=== PATIENT | female | born 1980 | race Caucasian/White ===

== ENCOUNTER 2021-04-07 20:44 | Inpatient (IN) | payer SELFPAY ==
[2021-04-07 22:29] VITALS: BP 119/78; PULSE 83; RESP 18; TEMP 36.4; O2SAT 98
[2021-04-07 22:31] VITALS: BMI 33.9
--- NOTE | 2021-04-08 05:13 | PC.ADMIT ---
6055 [address] Cooley Admission Note: Patient is a 40 year old female that presented to the ED of [facility] for evaluation of suicidal ideations. Patient has a history of depression which she states is worsening. She states, ?I no longer want to live. There is no longer a reason to live.? She has many stressors including the passing of her former years ago and losing custody of multiple children. During her assessment her nose ring was discussed. She asked repeatedly to let her leave it in as it is difficult to get out and expensive to re-hall. She said when she went to senior care they just cut it in half and yanked it out from both sides. She stated that really hurt. Patient showed positive for a UTI and received 3 doses of Keflex 500 mg. Patient tested + for meth and THC which she admitted to. The patient,Cinthia Peña,40 y/o, was given written information regarding hospital policies, unit procedures and contact persons. Vital Signs - 8 hr 04/07/21 22:29 Temperature 97.6 F Pulse Rate 83 Respiratory Rate 18 Blood Pressure 119/78 Pulse Oximetry 98
[2021-04-08 06:00] VITALS: BP 125/79; PULSE 78; RESP 18; TEMP 37.1; O2SAT 97
--- NOTE | 2021-04-08 08:12 | P.NPUHP_ITS ---
Providers/Chief Complaint Admitting Physician: Wan Cuevas MD Chief Complaint: MHE HPI NPU History of Present Illness Cinthia Peña is a 40 year old female was admitted as an outside referral from the emergency department at [facility] with the following report: this is a 40-year-old female who presents to the department for evaluation of suicidal ideations.? Patient reports a history of depression that has been worsening.? She states that she no longer wants to live and feels like there is no longer in the reason to live.? She denies any suicide attempts.? She denies any specific plan.? She does admit to amphetamine abuse and cannabinoid use.? She reports a history of previous opioid overdose but denies any current opioid usage.? She denies any IV drug abuse.? She states that she is feeling a prolonged sadness regarding previous stressful life events including passing of her former several years ago from drug overdose as well as losing custody of multiple children.? She states that I do not want to live anymore there is does not seem to be a point.? I do not have a plan to I just do not want him to be here anymore.? She arrives to the ED requesting assistance and hopeful for voluntary admission to psychiatric facility for help with her worsening sadness and current suicidal ideation.? Urine drug screen was positive for amphetamines and cannabinoids He was admitted to the neuropsychiatry unit for definitive treatment of these issues. She refuses to talk today. She says that she does not feel well. She cannot run come through her hair because we do not have conditioner. She says that she took some medications back in 2013 but does not remember all of them. She thinks that she was on Xanax and Wellbutrin among other things. She was hospitalized at that time but would not talk about why she was in the hospital. She has not been taking any medications recently. She says that she is homeless. She refused further discussion. She did talk with the nurse last night with the following report: Admission Note:?Patient is a 40 year old female that presented to the ED of [facility] for evaluation of suicidal ideations. Patient has a history of depression which she states is worsening.? She states, ?I no longer want to live.? There is no longer a reason to live.?? She has many stressors including the passing of her former years ago and losing custody of multiple children.? During her assessment her nose ring was discussed.? She asked repeatedly to let her leave it in as it is difficult to get out and expensive to re-hall.? She said when she went to penit[facility]iary they just cut it in half and yanked it out from both sides.? She stated that really hurt. Patient showed positive for a UTI and received 3 doses of Keflex 500 mg. Patient tested + for meth and THC which she admitted to. Meds NPU Home Medications Medication Instructions Recorded Confirmed Last Taken Type No Known Home Medications 04/08/21 04/08/21 Unknown History Mental Status Exam MSE Comments: This is a 40-year old female who appears approximately her stated age and is in no acute distress. She is in bed but woke up easily. She did not cooperate with the evaluation. She says that she does not feel well. psychomotor activity mildly decreased. About average for someone in bed. Speech is at a regular rate and rhythm, normal volume, good articulation, not pressured. Alert, would not answer questions about orientation Attention and concentration is probably average. Memory is intact Mood is depressed. Affect is mildly dysphoric. Thought process is logical and goal-directed. Thought content: Denies auditory and visual hallucinations. No delusions or paranoia are noted. No current suicidal ideation, and no homicidal ideation. Fund of knowledge is probably average. Insight and judgment appear to be poor. Impulse control is poor. Vitals/I&O/Wt Last Vital Signs Temp 98.8 F 04/08/21 06:00 Pulse 78 04/08/21 06:00 Resp 18 04/08/21 06:00 BP 125/79 04/08/21 06:00 Pulse Ox 97 04/08/21 06:00 Weight last 48 hrs Weight 95.254 kg A&P Assessment and plan (1) Depression: Status: Acute (2) Cluster B personality disorder in adult: Status: Acute (3) Suicidal ideation: Status: Acute (4) Homeless: Status: Acute (5) Methamphetamine abuse: Status: Acute (6) Cannabis abuse: Status: Acute Plan This is a 40-year-old female who is difficult to assess because she refuses to tell. She is evidently homeless and suicidal and abuses drugs. Plan: 1. Will observe on the medication for now and attempt to gather more information as she allows. 2. Continue every 15 minute checks for safety. 3. Encourage individual, group and milieu therapies. 4. Encourage sober living treatment after discharge at the highest level of care to which she is willing to commit. 5. We will monitor for safety for herself in the community prior to discharge. Involuntary Hold Information 96 Hour Hold: 96 Hour Involuntary Admission: No Attestations NPU Medical Necessity Statement*: Inpatient hospitalization is medically necessary and the clinically appropriate intervention at this time. We will initiate medications and make changes as indicated. She will be in the hospital for over 2 midnights. Likely length of stay 4-6 days Coding Level of Care Code Acute Meat Inspector for [facility] Fwd Diagnoses Depression F32.A Cluster B personality disorder in adult F60.9 Suicidal ideation R45.851 Homeless Z59.00 Methamphetamine abuse F15.10 Cannabis abuse F12.10
--- NOTE | 2021-04-08 08:17 | PC.OT ---
DURING OT EVALUATION PATIENT GAVE 1980
[2021-04-08 13:25] VITALS: BP 111/70; PULSE 65; RESP 17; TEMP 36.8; O2SAT 98
[2021-04-08] MEDS: OLANZapine 5 mg ODT PO (20:23)
--- NOTE | 2021-04-08 20:25 | PC.NURSE ---
Patient had a phone call that lead to agitation. Once back to her room nursing staff checked on her. She stated she did not want to be alive any more. She had a job and it is all gone now. There is no point to be here. Staff spoke with her and she wanted something to help her calm down. Zyprexa was given at 2022.
[2021-04-08 20:39] VITALS: BP 128/73; PULSE 95; RESP 18; TEMP 36.7; O2SAT 97
[2021-04-09 06:00] VITALS: BP 118/68; PULSE 86; RESP 20; TEMP 36.7; O2SAT 99
--- NOTE | 2021-04-09 11:25 | P.NPUPN_ITS ---
Subjective NPU Subjective: Interval history: See the social workers. She is in bed all the time. She says that her head is stuffy and she does not feel good. She says she does not like to take medication. I told her that she seemed to be okay with methamphetamine and marijuana. She said that she does not like methamphetamine but needed to stay awake so she did not get raped. She said I thought you guys were looking for a place for me to go. I told her that I did not know that she had talked with the social workers. They said that she refused to talk with them. I told her that we could not keep her here if she was escorted to lay in bed and not talk with us. She said that we could discharge her. I asked where she would go she said it does not matter and would not discuss it further. Mental Status Exam MSE Comments: This is a 40-year old female who appears approximately her stated age and is in no acute distress. She is in bed but woke up easily. She did not cooperate with the evaluation. She says that she does not feel well. psychomotor activity mildly decreased. About average for someone in bed. Speech is at a regular rate and rhythm, normal volume, good articulation, not pressured. Alert, would not answer questions about orientation Attention and concentration is probably average. Memory is intact Mood is depressed. Affect is irritable and dysphoric Thought process is logical and goal-directed. Thought content: Denies auditory and visual hallucinations. No delusions or paranoia are noted. No current suicidal ideation, and no homicidal ideation. Fund of knowledge is probably average. Insight and judgment appear to be poor. Impulse control is poor. Cognition: Patient Appearance: Appropriate and No Eye Contact Ability to Follow Directions: Excellent Patient Orientation (long list): Person, Place, Time, Name, Age and Birthday Comprehension Ability: No Impairment Hallucination Type: None Delusion Description: Not Present Thought Process: Blocking Behavior: Speech Pattern: Appropriate and Clear Vitals/I&O/Wt Last Vital Signs Temp 98.1 F 04/09/21 06:00 Pulse 86 04/09/21 06:00 Resp 20 H 04/09/21 06:00 BP 118/68 04/09/21 06:00 Pulse Ox 99 04/09/21 06:00 Weight last 48 hrs Weight 95.254 kg A&P Assessment and plan (1) Depression: Status: Acute (2) Cluster B personality disorder in adult: Status: Acute (3) Suicidal ideation: Status: Acute (4) Homeless: Status: Acute (5) Methamphetamine abuse: Status: Acute (6) Cannabis abuse: Status: Acute Plan This is a 40-year-old female who is difficult to assess because she refuses to talk. She is evidently homeless and suicidal and abuses drugs. Plan: 1. Will observe on the medication for now and attempt to gather more information as she allows. 2. Continue every 15 minute checks for safety. 3. Encourage individual, group and milieu therapies. 4. Encourage sober living treatment after discharge at the highest level of care to which she is willing to commit. 5. We will monitor for safety for herself in the community prior to discharge. Involuntary Hold Information 96 Hour Hold: 96 Hour Involuntary Admission: No Attestations NPU Medical Necessity Statement*: inpatient hospitalization is medically necessary and the clinically appropriate intervention at this time. We will initiate medications and make changes as indicated. Coding Level of Care Code Acute Radioactive Waste Disposal Dispatcher for [facility] Diagnoses Depression F32.A Cluster B personality disorder in adult F60.9 Suicidal ideation R45.851 Homeless Z59.00 Methamphetamine abuse F15.10 Cannabis abuse F12.10
[2021-04-09 14:00] VITALS: BP 112/52; PULSE 68; RESP 16; TEMP 36.3; O2SAT 99
[2021-04-09 21:46] VITALS: BP 117/65; PULSE 63; RESP 18; TEMP 36.3; O2SAT 97
[2021-04-10] MEDS: acetaminophen 325 mg Tablet 650 MG PO (02:36)
[2021-04-10 06:00] VITALS: BP 106/66; PULSE 62; RESP 16; TEMP 36.2; O2SAT 96
--- NOTE | 2021-04-10 12:15 | PC.NURSE ---
This RN attempted a physical assessment and focused suicidal assessment on client at approximately 1110 am. Patient was agitated as evidenced by patient yelling at self over not being able to open toothpaste. Patient stated I don't want to be here anymore, no one cares about me, I dont care about me. Client refused to answer focused suicidal questions. Client states I want to leave right now. I have no one. Don't you get it. No one cares about me.
[2021-04-10 14:00] VITALS: BP 128/76; PULSE 63; RESP 16; TEMP 36.7; O2SAT 100
--- NOTE | 2021-04-10 16:52 | W.PM.NPUPNS ---
Subjective NPU Subjective: Interval history: Patient presents today initially being quite reserved and not sharing with this typewriter mechanic which has been the difficulty with the treatment team thus far. She had been placed on a 96-hour hold earlier as she threatened to leave and great concerns existed with the outgoing physician and the treatment team about her safety. They had great concerns about how she had not been communicating with them as to how thin to changes in her safety profile to where would be safe for her to be discharged. Once it became clear that she was not leaving she began spouting things off about human trafficking and how possibly the last hospital contributed to her human trafficking and sex trafficking. She reported that only 2 people in the world to be trusted with certain information and that we had to release her before they figure out where she was. Mental Status Exam MSE Comments: This is an obese white female in hospital scrubs with limited grooming and eye contact. No abnormal movements except for psychomotor retardation juxtaposed with psychomotor agitation. Uncooperative with exam and moderate distress. At times extreme distress. Speech was decreased but then increased rate and volume. Mood described as fine affect labile. Thought process organized. Thought content: Patient was cagey about suicidal or homicidal ideation until it was clear she could leave and then she tried to use reports of safety as the reason she is to be discharged immediately, there were no delusions reported but concerns about paranoid and persecutory delusions exist, she did not endorse any auditory or visual hallucinations. Attention and concentration were limited and memory appeared unreliable but none were formally tested. She is alert and oriented x3. Insight and judgment appeared impaired impulse control was impaired. Vitals/I&O/Wt Last Vital Signs Temp 97.6 F 04/10/21 22:00 Pulse 67 04/10/21 22:00 Resp 17 04/10/21 22:00 BP 129/74 04/10/21 22:00 Pulse Ox 100 04/10/21 22:00 A&P Assessment and plan (1) Suicidal ideation: Status: Acute (2) Homeless: Status: Acute (3) Cluster B personality disorder in adult: Status: Acute (4) Depression: Status: Acute (5) Cannabis abuse: Status: Acute (6) Methamphetamine abuse: Status: Acute Plan This is a 40-year-old female who is difficult to assess because she refuses to talk.? She is evidently homeless and suicidal and abuses drugs. Plan: 1.? Will observe on the medication for now and attempt to gather more information as she allows. 2.? Continue every 15 minute checks for safety. 3.? Encourage individual, group and milieu therapies. 4.? Encourage sober living treatment after discharge at the highest level of care to which she is willing to commit. 5. Patient placed on a 96-hour hold as we assess for safety. Involuntary Hold Information 96 Hour Hold: 96 Hour Involuntary Admission: No Attestations NPU Medical Necessity Statement*: ?Inpatient hospitalization is medically necessary and the clinically appropriate intervention at this time.? We will initiate medications and make changes as indicated. Likely length of stay 2 to 4 days. Coding Level of Care Code Acute Correctional Classification Counselor for g Fwd Diagnoses Suicidal ideation R45.851 Homeless Z59.00 Cluster B personality disorder in adult F60.9 Depression F32.A Cannabis abuse F12.10 Methamphetamine abuse F15.10
[2021-04-10] MEDS: trazodone 50 mg Tablet PO (21:30)
[2021-04-10] MEDS: hyDROXYzine 25 mg Capsule 50 MG PO (21:30)
[2021-04-10 22:00] VITALS: BP 129/74; PULSE 67; RESP 17; TEMP 36.4; O2SAT 100
--- NOTE | 2021-04-11 01:22 | PC.NURSE ---
2129- vistaril for anxiety, and trazodone for sleep. 2229-It was effective.
[2021-04-11 06:00] VITALS: BP 129/59; PULSE 67; RESP 16; TEMP 36.4; O2SAT 99
[2021-04-11 14:00] VITALS: BP 120/81; PULSE 83; RESP 20; TEMP 36.4; O2SAT 100
--- NOTE | 2021-04-11 17:20 | P.NPUPN_ITS ---
Subjective NPU Subjective: Interval history: Patient presents today more talkative and more able to express some of her concerns and less animated and paranoid but still desirous of a immediate discharge without any clinical interventions. See talked a lot about her family not being trustworthy and selling her out in some situations particularly her sister. She did not deny that she may have some behaviors that are causing detrimental outcomes but continue to talk about sex trafficking and human trafficking. Mental Status Exam MSE Comments: This is an obese white female in hospital scrubs with limited grooming and eye contact.? No abnormal movements except for psychomotor retardation.? More cooperative with exam in mild distress.? Speech was more normal rate and volume. Mood described as fine affect less labile.? Thought process organized.? Thought content: Patient denied suicidal or homicidal ideation, there were no delusions reported but concerns about paranoid and persecutory delusions exist, she did not endorse any auditory or visual hallucinations.? Attention and concentration were improved and memory appeared unreliable but none were formally tested.? She is alert and oriented x3.? Insight and judgment appeared impaired impulse control was impaired. Vitals/I&O/Wt Last Vital Signs Temp 97.6 F 04/11/21 14:00 Pulse 83 04/11/21 14:00 Resp 20 H 04/11/21 14:00 BP 120/81 04/11/21 14:00 Pulse Ox 100 04/11/21 14:00 A&P Assessment and plan (1) Suicidal ideation: Status: Acute (2) Homeless: Status: Acute (3) Cluster B personality disorder in adult: Status: Acute (4) Depression: Status: Acute (5) Cannabis abuse: Status: Acute (6) Methamphetamine abuse: Status: Acute (7) Psychosis: Status: Acute Plan This is a 40-year-old female who is difficult to assess because she refuses to talk.? She is evidently homeless and suicidal and abuses drugs. Plan: 1.? Will observe on the medication for now and attempt to gather more information as she allows. 2.? Continue every 15 minute checks for safety. 3.? Encourage individual, group and milieu therapies. 4.? Encourage sober living treatment after discharge at the highest level of care to which she is willing to commit. 5.? Patient placed on a 96-hour hold as we assess for safety. Involuntary Hold Information 96 Hour Hold: 96 Hour Involuntary Admission: No Attestations NPU Medical Necessity Statement*: Inpatient hospitalization is medically necessary and the clinically appropriate intervention at this time.? We will initiate medications and make changes as indicated.? Likely length of stay 2 to 4 days. Coding Level of Care Code Acute Internal Recruiter for [facility] Fwd Diagnoses Suicidal ideation R45.851 Homeless Z59.00 Cluster B personality disorder in adult F60.9 Depression F32.A Cannabis abuse F12.10 Methamphetamine abuse F15.10 Psychosis F29
[2021-04-11] MEDS: nicotine 2 mg Gum BUCCAL (19:26)
[2021-04-11] MEDS: OLANZapine 5 mg ODT PO (19:26)
[2021-04-11] MEDS: trazodone 50 mg Tablet PO (20:14)
[2021-04-11 20:54] VITALS: BP 135/85; PULSE 73; RESP 18; TEMP 37; O2SAT 100
[2021-04-12 06:00] VITALS: BP 114/66; PULSE 69; RESP 16; O2SAT 98
[2021-04-12] MEDS: OLANZapine 5 mg ODT PO ×2 (07:20→19:20)
[2021-04-12 14:00] VITALS: BP 126/73; PULSE 67; RESP 16; TEMP 36.3; O2SAT 99
--- NOTE | 2021-04-12 15:32 | W.PM.NPUPNS ---
Subjective NPU Subjective: Interval history: Patient presents today continuing to express significant resistance to consideration of any medication. She did express difficulty sleeping and was open to increasing the trazodone and making it a steady dose. She expressed less angst surrounding her family but did spend much of the session talking about how no one is truthful and no one is trustworthy and spoke individually about certain people not caring in the world not caring at all. She acknowledged having addiction as an issue but downplayed the impact of addiction on her presentation. Medications: Medication Review Details: This is an obese white female in hospital scrubs with limited grooming and eye contact.? No abnormal movements except for psychomotor retardation.? More cooperative with exam in less distress.? Speech was more normal rate and volume. Mood described as fine affect less labile.? Thought process organized.? Thought content: Patient denied suicidal or homicidal ideation, there were no delusions reported but concerns about paranoid and persecutory delusions exist, she did not endorse any auditory or visual hallucinations.? Attention and concentration were improved and memory appeared unreliable but none were formally tested.? She is alert and oriented x3.? Insight and judgment appeared impaired impulse control was impaired. Vitals/I&O/Wt Last Vital Signs Temp 97.4 F L 04/12/21 14:00 Pulse 67 04/12/21 14:00 Resp 16 04/12/21 14:00 BP 126/73 04/12/21 14:00 Pulse Ox 99 04/12/21 14:00 A&P Assessment and plan (1) Psychosis: Status: Acute (2) Suicidal ideation: Status: Acute (3) Homeless: Status: Acute (4) Cluster B personality disorder in adult: Status: Acute (5) Depression: Status: Acute (6) Cannabis abuse: Status: Acute (7) Methamphetamine abuse: Status: Acute Plan This is a 40-year-old female who is difficult to assess because she refuses to talk.? She is evidently homeless and suicidal and abuses drugs. Plan: 1.? Will observe on the medication for now and attempt to gather more information as she allows. Her trazodone for as needed sleep option was increased to 100 mg p.o. nightly. 2.? Continue every 15 minute checks for safety. 3.? Encourage individual, group and milieu therapies. 4.? Encourage sober living treatment after discharge at the highest level of care to which she is willing to commit. 5.? Patient placed on a 96-hour hold as we assess for safety. Involuntary Hold Information 96 Hour Hold: 96 Hour Involuntary Admission: No Attestations NPU Medical Necessity Statement*: Inpatient hospitalization is medically necessary and the clinically appropriate intervention at this time.? We will initiate medications and make changes as indicated.? Likely length of stay 2 to 4 days. Coding Level of Care Code Acute Industrial Electrician Journeyman for [facility] Fwd Diagnoses Psychosis F29 Suicidal ideation R45.851 Homeless Z59.00 Cluster B personality disorder in adult F60.9 Depression F32.A Cannabis abuse F12.10 Methamphetamine abuse F15.10
[2021-04-12] MEDS: nicotine 2 mg Gum BUCCAL (19:20)
[2021-04-12 22:00] VITALS: BP 126/69; PULSE 82; RESP 17; TEMP 36.7; O2SAT 100
[2021-04-13 06:00] VITALS: BP 118/73; PULSE 79; RESP 20; TEMP 36.2; O2SAT 97
--- NOTE | 2021-04-13 11:39 | W.PM.NPUPNS ---
Subjective NPU Subjective: Interval history: Patient presents today less talkative than last couple of days. Endorsing frustration about being here. She continues to seem less paranoid than her initial presentation and has calmed down considerably according to staff and this credit underwriter's observation. We agreed that she would meet with the treatment team tomorrow and the social work team to get a real sense of how she is actually doing and what options exist for her outside the hospital. Mental Status Exam MSE Comments: This is an obese white female in hospital scrubs with limited grooming and eye contact.? No abnormal movements except for psychomotor retardation.? More cooperative with exam in mild distress.? Speech was more normal rate and volume. Mood described as fine affect subdued.? Thought process organized.? Thought content: Patient denied suicidal or homicidal ideation, there were no delusions reported but decreasing concerns about paranoid and persecutory delusions exist, she did not endorse any auditory or visual hallucinations.? Attention and concentration were improved and memory appeared unreliable but none were formally tested.? She is alert and oriented x3.? Insight and judgment appeared limited impulse control was limited. Vitals/I&O/Wt Last Vital Signs Temp 97.1 F L 04/13/21 06:00 Pulse 79 04/13/21 06:00 Resp 20 H 04/13/21 06:00 BP 118/73 04/13/21 06:00 Pulse Ox 97 04/13/21 06:00 Weight last 48 hrs Weight 109.769 kg A&P Assessment and plan (1) Psychosis: Status: Acute (2) Suicidal ideation: Status: Acute (3) Homeless: Status: Acute (4) Cluster B personality disorder in adult: Status: Acute (5) Depression: Status: Acute (6) Cannabis abuse: Status: Acute (7) Methamphetamine abuse: Status: Acute Plan This is a 40-year-old female who is difficult to assess because she refuses to talk.? She is evidently homeless and suicidal and abuses drugs. Plan: 1.? Will observe on the medication for now and attempt to gather more information as she allows. Her trazodone for as needed sleep option was increased to 100 mg p.o. nightly. 2.? Continue every 15 minute checks for safety. 3.? Encourage individual, group and milieu therapies. 4.? Encourage sober living treatment after discharge at the highest level of care to which she is willing to commit. 5.? Patient placed on a 96-hour hold as we assess for safety. Involuntary Hold Information 96 Hour Hold: 96 Hour Involuntary Admission: No Attestations NPU Medical Necessity Statement*: Inpatient hospitalization is medically necessary and the clinically appropriate intervention at this time.? We will initiate medications and make changes as indicated.? Likely length of stay 2 to 3 days. Coding Level of Care Code Acute Ground Crew Supervisor for [facility] Fwd Diagnoses Psychosis F29 Suicidal ideation R45.851 Homeless Z59.00 Cluster B personality disorder in adult F60.9 Depression F32.A Cannabis abuse F12.10 Methamphetamine abuse F15.10
[2021-04-13 14:00] VITALS: BP 121/69; PULSE 71; RESP 18; TEMP 36.6; O2SAT 96
[2021-04-13] MEDS: nicotine 2 mg Gum BUCCAL (17:23)
[2021-04-13 20:15] VITALS: BP 127/92; PULSE 63; RESP 22; TEMP 36.5; O2SAT 99
[2021-04-13] MEDS: trazodone 100 mg Tablet PO (20:22)
[2021-04-14 06:00] VITALS: BP 112/68; PULSE 66; RESP 18; TEMP 36.8; O2SAT 97
--- NOTE | 2021-04-14 09:28 | W.PM.NPUPNS ---
Subjective NPU Subjective: Interval history: Patient presents today reporting that she wants to leave which has been her position every day. She is much more pleasant today and able to have a conversation with this commercial lines underwriter calmly however she did have moments where she lost control in an attempt to explain why she wanted to leave today. We had initially agreed to get her to a correction tomorrow but now there are concerns about some limitations in that excepting agency. Social work team is working to clarify with a tentative plan for discharge tomorrow. Mental Status Exam MSE Comments: This is an obese white female in hospital scrubs with limited grooming and eye contact.? No abnormal movements except for psychomotor retardation.? More cooperative with exam in mild at times extreme distress.? Speech was more normal rate and volume except for when she was very angry. Mood described as better, affect congruent for the most part.? Thought process organized.? Thought content: Patient denied suicidal or homicidal ideation, there were no delusions reported and decreasing concerns about paranoid and persecutory delusions exist, she did not endorse any auditory or visual hallucinations.? Attention and concentration were improved and memory appeared unreliable but improving, but none were formally tested.? She is alert and oriented x3.? Insight and judgment appeared limited impulse control was limited. Vitals/I&O/Wt Last Vital Signs Temp 98.3 F 04/14/21 06:00 Pulse 66 04/14/21 06:00 Resp 18 04/14/21 06:00 BP 112/68 04/14/21 06:00 Pulse Ox 97 04/14/21 06:00 Weight last 48 hrs Weight 109.769 kg A&P Assessment and plan (1) Psychosis: Status: Acute (2) Suicidal ideation: Status: Acute (3) Homeless: Status: Acute (4) Cluster B personality disorder in adult: Status: Acute (5) Methamphetamine abuse: Status: Acute (6) Cannabis abuse: Status: Acute (7) Depression: Status: Acute Plan This is a 40-year-old female who is difficult to assess because she refuses to talk.? She is evidently homeless and suicidal and abuses drugs. Plan: 1.? Will observe on the medication for now and attempt to gather more information as she allows. Her trazodone for as needed sleep option was increased to 100 mg p.o. nightly. 2.? Continue every 15 minute checks for safety. 3.? Encourage individual, group and milieu therapies. 4.? Encourage sober living treatment after discharge at the highest level of care to which she is willing to commit. 5.? Patient placed on a 96-hour hold as we assess for safety. She seems to have improving mood and affect as he gets further away from her active use. Involuntary Hold Information 96 Hour Hold: 96 Hour Involuntary Admission: No Attestations NPU Medical Necessity Statement*: Inpatient hospitalization is medically necessary and the clinically appropriate intervention at this time.? We will initiate medications and make changes as indicated.? Likely length of stay 1-3 days. Coding Level of Care Code Acute Petrophysical Engineer for Gregoria Fwd Diagnoses Psychosis F29 Suicidal ideation R45.851 Homeless Z59.00 Cluster B personality disorder in adult F60.9 Methamphetamine abuse F15.10 Cannabis abuse F12.10 Depression F32.A
[2021-04-14] MEDS: nicotine 4 mg lozenge MUCOUS MEM (13:20)
[2021-04-14 14:00] VITALS: BP 133/83; PULSE 107; RESP 18; TEMP 36.5; O2SAT 97
[2021-04-14] MEDS: trazodone 100 mg Tablet PO (19:42)
[2021-04-14 20:06] VITALS: BP 155/74; PULSE 77; RESP 18; TEMP 36.7; O2SAT 97
[2021-04-15 06:00] VITALS: BP 121/79; PULSE 79; RESP 17; TEMP 36.4; O2SAT 94
[2021-04-15 10:00] LABS: SARS Covid-2 Antigen Negative (Negative)
--- NOTE | 2021-04-15 11:18 | W.PM.NPUDCS ---
Diagnoses at Discharge Discharge Diagnosis (1) Psychosis: Status: Acute (2) Suicidal ideation: Status: Resolved (3) Homeless: Status: Acute (4) Cluster B personality disorder in adult: Status: Acute (5) Methamphetamine abuse: Status: Acute (6) Cannabis abuse: Status: Acute (7) Depression: Status: Acute Reason for Visit Reason for Visit: E Brief History: History of Present Illness Cinthia Peña is a 40 year old female was admitted as an outside referral from the emergency department at [facility] with the following report: this is a 40-year-old female who presents to the department for evaluation of suicidal ideations.? Patient reports a history of depression that has been worsening.? She states that she no longer wants to live and feels like there is no longer in the reason to live.? She denies any suicide attempts.? She denies any specific plan.? She does admit to amphetamine abuse and cannabinoid use.? She reports a history of previous opioid overdose but denies any current opioid usage.? She denies any IV drug abuse.? She states that she is feeling a prolonged sadness regarding previous stressful life events including passing of her former several years ago from drug overdose as well as losing custody of multiple children.? She states that I do not want to live anymore there is does not seem to be a point.? I do not have a plan to I just do not want him to be here anymore.? She arrives to the ED requesting assistance and hopeful for voluntary admission to psychiatric facility for help with her worsening sadness and current suicidal ideation.? Urine drug screen was positive for amphetamines and cannabinoids He was admitted to the neuropsychiatry unit for definitive treatment of these issues.? She refuses to talk today.? She says that she does not feel well.? She cannot run come through her hair because we do not have conditioner.? She says that she took some medications back in 2013 but does not remember all of them.? She thinks that she was on Xanax and Wellbutrin among other things.? She was hospitalized at that time but would not talk about why she was in the hospital.? She has not been taking any medications recently.? She says that she is homeless.? She refused further discussion. She did talk with the nurse last night with the following report: Admission Note:?Patient is a 40 year old female that presented to the ED of [facility] for evaluation of suicidal ideations. Patient has a history of depression which she states is worsening.? She states, ?I no longer want to live.? There is no longer a reason to live.?? She has many stressors including the passing of her former years ago and losing custody of multiple children.? During her assessment her nose ring was discussed.? She asked repeatedly to let her leave it in as it is difficult to get out and expensive to re-hall.? She said when she went to intermediate they just cut it in half and yanked it out from both sides.? She stated that really hurt. Patient showed positive for a UTI and received 3 doses of Keflex 500 mg. Patient tested + for meth and THC which she admitted to. Hospital Course Hospital Course She slowly acclimated to the individual, group and milieu therapies provided. She has been struggling with her active addiction, cluster B pathology and psychosis secondary to her use. She is unwilling to try any medications to assist with her irritability and resolving psychosis. She only agreed to trazodone to assist with her sleep. Over the several days she did demonstrate significant improvement and she work with the treatment team to find a safe place to discharge given her homeless status. She was able to contract for safety outside the hospital prior to discharge. At the outside hospital, patient had routine laboratory studies which were within normal limits except for few outliers. Additionally there was a general medical evaluation which was also within normal limits and revealed no new acute processes. Discharge Summary: At the time of discharge, lethality was denied and psychosis was resolving. Mood and anxiety were well managed. Patient endorsed a plan to avoid all drugs of abuse and follow-up with the aftercare recommendations of the treatment team. Patient was evaluated and deemed to be absent credible lethality, and had achieved the maximum benefit from an inpatient hospitalization, so was discharged. Involuntary Hold Information 96 Hour Hold: 96 Hour Involuntary Admission: No Mental Status Exam MSE Comments: This is an obese white female in hospital scrubs with limited grooming and eye contact.? No abnormal movements.? More cooperative with exam in no acute distress.? Speech was more normal rate and volume.? Mood described as better, affect congruent.? Thought process organized.? Thought content: Patient denied suicidal or homicidal ideation, there were no delusions reported and decreasing concerns about paranoid and persecutory delusions exist, she did not endorse any auditory or visual hallucinations.? Attention and concentration were improved and memory appeared unreliable but improving, but none were formally tested.? She is alert and oriented x3.? Insight and judgment appeared limited but improving, impulse control was limited. Discharge Data Studies Completed and Pending: Laboratory Results SARS-CoV-2 Ag (Rap id) Negative (Negati ve) 04/15/21 09:15 Vitals: Last Vital Signs Temp 97.6 F 04/15/21 06:00 Pulse 79 04/15/21 06:00 Resp 17 04/15/21 06:00 BP 121/79 04/15/21 06:00 Pulse Ox 94 04/15/21 06:00 Discharge Plan Discharge Patient Disposition: Home Condition: Stable Prescriptions: New trazodone 100 mg Tablet 100 mg PO BEDTIME 30 Days Qty: 30 1RF Discharge Orders: Discharge Order (Routine); Ordered 04/15/21 Ordered By: Taran Beebe Discharge Diet: Regular Discharge Activity: Resume usual activity Patient Instructions: Trazodone (By mouth) (Desyrel, Desyrel Dividose, Oleptro, Trazamine), Opioid Safety Discharge Attestations NPU Time Spent in Discharge Care*: less than 30 min Specific Discharge Activities: Specific discharge activities: educating patient, discussing with case making machine operator/social workers/dc planners, documenting/other paperwork and evaluating patient/reviewing data Coding Level of Care Code Acute Chg DC note Diagnoses Psychosis F29 Suicidal ideation R45.851 Homeless Z59.00 Cluster B personality disorder in adult F60.9 Methamphetamine abuse F15.10 Cannabis abuse F12.10 Depression F32.A
[2021-04-15 11:40] VITALS: BP 121/79; PULSE 79; RESP 17; TEMP 36.4; O2SAT 94
== END 2021-04-15 13:10 | disposition home or self-care (01) | DRG 881 ==
PROVIDERS: Admitting Provider Psychiatry & Neurology Psychiatry; Visit Provider Psychiatry & Neurology Psychiatry
DX: F32.A Depression, unspecified (principal); R45.851 Suicidal ideations; N39.0 Urinary tract infection, site not specified; F15.159 Other stimulant abuse with stimulant-induced psychotic disorder, unspecified; F12.159 Cannabis abuse with psychotic disorder, unspecified; F60.89 Other specific personality disorders; Z59.01 Sheltered homelessness; Z63.4 Disappearance and death of family member; Z63.79 Other stressful life events affecting family and household
CPT/HCPCS: 87426; 97150; 97165